=== PATIENT | male | born 1955 | race Caucasian/White ===

== ENCOUNTER 2020-12-18 00:55 | Emergency (ER) | payer OTHER ==
[~2020-12-18] VITALS: Ht 172.7 cm; Wt 81.6 kg
[2020-12-18] MEDS ORDERED: ELIQUIS5 MG (01:05)
[2020-12-18] MEDS ORDERED: VASOTEC5 MG (01:05)
[2020-12-18] MEDS ORDERED: TOPROL XL50 M1 (01:05)
[2020-12-18] MEDS ORDERED: LIPITOR40 M1 (01:05)
[2020-12-18] MEDS ORDERED: LASIX20 MG PO (06:10)
== END 2020-12-18 06:14 | disposition home or self-care (01) ==
LOC: ER 00:55
DX: R06.02 Shortness of breath (principal)